=== PATIENT | male | born 1955 | race Caucasian/White ===

== ENCOUNTER 2021-04-24 19:00 | Emergency (ER) | payer OTHER ==
[~2021-04-24] VITALS: Ht 172.7 cm; Wt 86.4 kg
[2021-04-24 20:10] VITALS: BP 143/79
== END 2021-04-24 20:42 | disposition home or self-care (01) ==
LOC: EMS 19:17
DX: L03.011 Cellulitis of right finger (principal)
CPT/HCPCS: 10160; 99284; Z7502